=== PATIENT | male | born 1935 | race Caucasian/White ===

== ENCOUNTER 2016-11-18 22:01 | Inpatient (IN) | payer MEDICARE ==
[~2016-11-18] VITALS: Ht 175.3 cm; Wt 109.2 kg
[2016-11-18 22:05] VITALS: BP 126/61; PULSE 83; RESP 20; O2SAT 98
--- NOTE | 2016-11-18 22:09 | ED.REPORT ---
HPI-General Illness Date of Service Nov 18, 2016 ED Provider: Maurice Lyons MD Pt is a 83 year old male with a history of GA (4x) and CHF who presents to the ED via EMS complaining of weakness onset prior to arrival. He c/o associated dizziness and difficulty speaking. He denies chest pain, SOB, fever, nausea, vomiting, diarrhea, dysuria, numbness and tingling in legs, LOC, and headache. Per daughter, the pt has been complaining of fatigue for the last 2 weeks, and he has been in the process of moving in with her for the past 4 days. His daughter states that he has been more active since moving in with her. He was last known well at 09:00. The pt denies a history of CVA. Nursing Notes Stated Complaint: WEAKNESS Chief Complaint: General Complaint Nursing Notes Reviewed: Yes Allergies: Coded Allergies: No Known Allergies (Unverified , 11/18/16) General Time Seen by MD: 22:08 Chief Complaint Weakness Hx Obtained From: Patient, EMS Arrived By: Fire rescue Sudden in Onset?: Yes Onset Occurred: Just prior to arrival Symptom Duration: Intermittent Severity: Current: No pain currently Severity: Maximum: No pain Recent Healthcare: No recent doctor visit, No recent hospitalization Similar Sx Previous: No Past Medical History Past Medical History CHF GA 4x A-fib on coumadin Past Surgical History Denies Smoking History Unknown if Ever Smoker Social History Other Social History: Good social support, , Lives with children Ambulatory Status Independent Review of Systems Full Review of Systems Constitutional: Reports: Fatigue, Denies: Fever Respiratory: Denies: Shortness of breath Cardiovascular: Denies: Chest pain GI: Denies: Diarrhea, Nausea, Vomiting Neurologic: Reports: Dizziness, Slurred speech, Weakness, Denies: Change LOC, Headache, Numbness Complete sys rev & neg: except as marked. Physical Exam Vital Signs Vital Signs Date Time Temp Pulse Resp B/P Pulse Ox O2 Delivery O2 Flow Rate FiO2 11/19/16 01:45 80 17 134/73 97 Room Air 11/19/16 00:15 86 24 130/64 98 Room Air 11/18/16 23:49 85 20 126/63 97 Room Air 11/18/16 22:05 83 20 126/61 98 Room Air Initial VS: Reviewed, Vital signs normal Head / Eyes: Atraumatic, Normocephalic Neck: Supple, Full range of motion Respiratory: Breath sounds normal, Clear to auscultation, No respiratory distress Cardiovascular: Regular rate & rhythm, Heart sounds normal, Intact distal pulses Abdomen / GI: Soft, Non-tender Skin: Warm, Dry, No cyanosis Neurologic: Alert, Oriented, Nonfocal Psychiatric: Mood/affect normal, Behavior normal General/Constitutional: Awake, Alert, Cooperative Lower Extremity / Pelvis / MS: Atraumatic, Full range of motion, Neurologic intact, Vascular intact Trace bilateral edema Neurologic: Oriented X3 Minor facial palsy, left arm weakness, slurring and loss of fluency. Interpretation & Diagnostics CT ANGIOGRAM WITH MULTIPLANAR RECONSTRUCTION: CONCLUSION: No significant abnormality identified. Mild atherosclerotic changes in the carotid bulbs. CT ANGIOGRAM BRAIN: CONCLUSION: Normal CT angiogram of the brain. Moderate involutional changes. Transmitted to the ED at 01:31 by Daniel Knight M.D. Lab Results Interpretation Result Diagram: 11/18/16 2255 11/18/16 2255 Test 11/18/16 22:55 11/19/16 00:00 11/19/16 00:30 White Blood Count 6.3th/mm3 (3.8-10.1) Red Blood Count 5.10mil/mm3 (4.40-5.80) Hemoglobin 15.6g/dL (13.8-17.2) Hematocrit 44.3% (41.0-50.0) Mean Corpuscular Volume 86.9fL (81-100) Mean Corpuscular Hemoglobin 30.6pg (27.0-35.0) Mean Corpuscular Hemoglobin Concent 35.2% (32.0-37.0) Red Cell Distribution Width 14.0% (12.3-15.4) Platelet Count 202bil/L (150-400) Neutrophils (%) (Auto) 50.4% (40-74) Lymphocytes (%) (Auto) 26.5% (14-46) Monocytes (%) (Auto) 12.2% (4-12) Eosinophils (%) (Auto) 10.0% (0-5) Basophils (%) (Auto) 0.6% (0-3) Prothrombin Time 10.5sec (8.1-12.5) Prothromb Time International Ratio 0.98ratio Activated Partial Thromboplast Time 26.7sec (22.8-33.0) Sodium Level 138mEq/L (134-144) Potassium Level 4.5mEq/L (3.5-5.2) Chloride Level 102mEq/L (97-108) Carbon Dioxide Level 22mmol/L (18-29) Blood Urea Nitrogen 26mg/dL (8-27) Creatinine 1.10mg/dL (0.76-1.27) Estimat Glomerular Filtration Rate 68mL/min (>59) Glucose Level 114mg/dL (60-99) Calcium Level 9.1mg/dL (8.5-10.1) Magnesium Level 2.0mg/dL (1.6-2.6) Total Bilirubin 0.3mg/dL (0.0-1.2) Aspartate Amino Transf (AST/SGOT) 28U/L (0-50) Alanine Aminotransferase (ALT/SGPT) 20U/L (0-44) Alkaline Phosphatase 86U/L (25-160) Troponin T 0.010ug/L (0.0-0.011) Total Protein 6.7g/dL (6.4-8.4) Albumin 4.0g/dL (3.4-5.0) Hold Martin Top Tube Received (Received) Urine Color Yellow (YELLOW) Urine Appearance Clear (CLEAR,HAZY) Urine pH 7.0 (5.0-8.0) Urine Specific [place] 1.015 (1.003-1.035) Urine Protein Negativemg/dL (NEG,TRACE) Urine Glucose (UA) Negativemg/dL (NEGATIVE) Urine Ketones Negativemg/dL (NEGATIVE) Urine Occult Blood Negative (NEGATIVE) Urine Nitrite Negative (NEGATIVE) Urine Bilirubin Negative (NEGATIVE) Urine Urobilinogen 1.0mg/dL (NORMAL) Urine Leukocyte Esterase Negative (NEGATIVE) Urine RBC 0-2/hpf (0-2) Urine WBC 0-5/hpf (0-5) Urine Epithelial Cells Occasional/hpf (NONE-MOD) Urine Crystals None seen (NONE SEEN) Urine Bacteria None/hpf (NONE-FEW) Urine Hyaline Casts None/lpf (NONE) Urine Granular Casts None seen (NONE SEEN) Urine Waxy Casts None seen (NONE SEEN) Urine Red Blood Cell Casts None seen (NONE SEEN) Urine White Blood Cell Casts None seen (NONE SEEN) Urine Mucus Present (None Seen) Urine Trichomonas None seen (NONE SEEN) Urine Yeast None (NONE SEEN) Urinalysis Comment None Urine Culture Reflexed Not indicated Hold Urine Received (Received) Lab values outside NL range: no clinical significance. ECG Interpretation ECG Interpretation: Atrail fibrillation with a rate of 83. Right bundle branch block. Time: 23:13 Interpreted by: ED physician X-Ray Chest Interpretation Chest Xray Interpretation: Negative View: Portable, 1 view Interpretation / Wet Read by: Wet read ED physician CT Head Interpretation CONCLUSION: Moderate involutional changes. Moderate patchy low density bilaterally in the deep white matter likely due to chronic ischemic small vessel disease. NO acute intracranial abnormaility. Bilateral frontal ethmoid and sphenoid sinus mucosal thickening. Transmitted to the ED at 22:37 by Daniel Knight M.D. Study: Head CT no contrast Interpretation / Wet Read by: Interpret - Radiologist, Discussed w radiologist Re-Eval/Medical Decision Med Decision/Clinical Course 81-year-old male with a history of atrial fibrillation presents with waxing and waning left-sided neurological symptoms and loss of speech fluency. He has a fluctuating NIH stroke scale from 1-4 with quite subtle changes. CT scan of the head initially was negative. Labs are normal. CT angiogram of the neck and brain is negative for any obstructing lesions or evidence of clot. He will be admitted to the hospitalist service and further evaluated with MRI and/or echocardiogram. Source of Hx: Old records Time of Eval: 22:40 Re-Evaluation/Progress Note: Pt rechecked. Pt informed of CT head results. All questions addressed. Time of Eval: 00:53 Re-Evaluation/Progress Note: Pt rechecked. Informed pt of plan for admission. Pt understands and agrees with plan for admission. All questions addressed. Consultation #1: Referral / Consult Name: Daniel Knight MD Call Returned at: 22:37 Welding Setter: Agrees with eval, Agrees with plan Note: Discussed CT findings. Consultation #2: Referral / Consult Name: Hilton Mahan MD Consulted With: Hospitalist Call Returned at: 01:22 Welding Setter: Will see patient, Agrees with eval, Agrees with plan, Accepts admit Counseled Regarding: Diagnosis, Lab results, Need for admission Discharge & Departure Primary Impression: CVA (cerebral vascular accident) CVA mechanism: unspecified Qualified Code: I63.9 - Cerebral infarction, unspecified Additional Impression: A-fib Atrial fibrillation type: unspecified Qualified Code: I48.91 - Unspecified atrial fibrillation Disposition: ADMITTED TO HOSPITAL Discharge Condition All VS Reviewed: Yes Condition: Stable Referrals: [facility] Scribe Attestation Portions of this note were transcribed by Blanka Martinez. I, Dr. Lyons personally performed the history, physical exam and medical decision-making; I reviewed and confirmed the accuracy of the information in the transcribed note. Signed by: Daylin Valle, 11/18/16 and 24:30. copies to: [facility] Risk Factors NIH Stroke Scale Level of Consciousness: Alert and responsive (0) Ask Month & Age: Both questions right (0) Open/Close Eyes/Hand Floor Layer Tile: Performs both tasks (0) Horizontal EO Movements: None (0) Visual Lowe: No visual loss (0) Facial Palsy: Minor paralysis (1) Right Arm Motor Drift (10s): No drift 10 sec (0) Left Arm Motor Drift (10s): No drift 10 sec (0) Right Leg Motor Drift (5s): No drift 5 sec (0) Left Leg Motor Drift (5s): No drift 5 sec (0) Limb Ataxia FNF/Heel-Downing: Ataxia in 1 limb (1) Sensation (Arms/Legs/Face): No sensory loss (0) Language Aphasia: Loss fluency ID matls (1) Dysarthria: Slurring intelligible (1) Extinction/Inattention: No exctinct/inattent (0) NIHSS Score: 4 Time NIHSS Performed: 22:26 Date NIHSS Performed: Nov 18, 2016 Maurice Lyons MD Nov 18, 2016 22:09 Blanka Oliveira Nov 18, 2016 22:19
[2016-11-18 23:08] LABS: BASOPHILS % (AUTO) 0.6 % (0-3); MONOCYTES % (AUTO) 12.2 % (4-12); Mean Corpuscular Hemoglobin 30.6 pg (27.0-35.0); Mean Corpuscular Volume 86.9 fL (81-100); NEUTROPHILS % (AUTO) 50.4 % (40-74); Platelet Count 202 bil/L (150-400)
[2016-11-18 23:22] LABS: INR 0.98 ratio
[2016-11-18 23:26] LABS: TROPONIN T 0.01 ug/L (0.0-0.011)
[2016-11-18 23:49] VITALS: BP 126/63; PULSE 85; RESP 20; O2SAT 97
[2016-11-19] VITALS (11 sets, daily range): BP systolic 130–158; BP diastolic 64–105; PULSE 65–87; RESP 16–24; O2SAT 95–98
[2016-11-19] MEDS ORDERED: Alum-Mag Hydrox-Simeth 30 mL Suspension PO PRN (01:50)
[2016-11-19] MEDS ORDERED: Polyethylene Glycol (PEG) 17 Gm Powder PO PRN (01:50)
[2016-11-19] MEDS ORDERED: Ondansetron 2 mg/mL 2 mL Inj IVPUSH PRN (01:50)
--- NOTE | 2016-11-19 02:10 | PCM.HPMED ---
Subjective Date of Service Nov 19, 2016 Primary Provider: Admitting Physician: Debbie Hernandez MD Primary Care Physician: Other,Physician Attending Physician: Debbie Hernandez MD Admit Status: From the Emergency Department, 23-Hour Observation, Remote Telemetry Chief Complaint: Left-sided weakness and slurred speech History of Present Illness: Is an 83-year-old male who has a history of WI and atrial fibrillation who presented to the emergency room via EMS with left-sided weakness and slurred speech. He notes that it is better but not completely resolved. He denies any history of previous strokes. Patient had been on Coumadin for his atrial fibrillation but he did not want to take it anymore and stopped about 2 years ago. He denies cough or chest pain. Denies any fevers or chills. His evaluation in the emergency room includes CT of head without contrast which revealed moderate involutional changes. Moderate patchy low density bilaterally in the deep white matter likely due to chronic ischemic small vessel disease. No acute intracranial abnormality noted bilateral frontal ethmoid and sphenoid sinus mucosal thickening. Per ER M.D. preliminary read on CTA head and neck is essentially negative no acute findings. Review of Systems: All other review of systems are reviewed and are negative except for as in history of present illness. Allergies Coded Allergies: No Known Allergies (Unverified , 11/18/16) Home Medications None PMH History of atrial fibrillation, chronic History of congestive heart failure no records available at the time this dictation History of WI 4 times Social History Hx Alcohol Use: No (quit in 1968) Hx Substance Use: No Smoking Status: Former Smoker (quit in 1968), Unknown if Ever Smoker Living Arrangement: with Family Exam Vital Signs Vital Sign - Last Date Time Temp Pulse Resp B/P Pulse Ox O2 Delivery O2 Flow Rate FiO2 11/19/16 01:54 80 17 134/73 97 Room Air Exam Constitutional: Elderly male in no acute distress Head: Normocephalic atraumatic Chest: Clear to auscultation Heart: Irregular regular rate and rhythm S1-S2 Abdomen: Soft nontender bowel sounds present Extremities: Trace bilateral pedal edema Psych: Mood and affect are appropriate Skin: No rashes noted Neuro: Alert and oriented 3 there is some slight dysarthria with speaking motor strength seems to be intact bilaterally Lab and Diagnostics Labs Laboratory Tests 72 Hours Test 11/18/16 22:55 11/19/16 00:30 White Blood Count 6.3th/mm3 (3.8-10.1) Red Blood Count 5.10mil/mm3 (4.40-5.80) Hemoglobin 15.6g/dL (13.8-17.2) Hematocrit 44.3% (41.0-50.0) Mean Corpuscular Volume 86.9fL (81-100) Mean Corpuscular Hemoglobin 30.6pg (27.0-35.0) Mean Corpuscular Hemoglobin Concent 35.2% (32.0-37.0) Red Cell Distribution Width 14.0% (12.3-15.4) Platelet Count 202bil/L (150-400) Neutrophils (%) (Auto) 50.4% (40-74) Lymphocytes (%) (Auto) 26.5% (14-46) Monocytes (%) (Auto) 12.2% (4-12) Eosinophils (%) (Auto) 10.0% (0-5) Basophils (%) (Auto) 0.6% (0-3) Prothrombin Time 10.5sec (8.1-12.5) Prothromb Time International Ratio 0.98ratio Activated Partial Thromboplast Time 26.7sec (22.8-33.0) Sodium Level 138mEq/L (134-144) Potassium Level 4.5mEq/L (3.5-5.2) Chloride Level 102mEq/L (97-108) Carbon Dioxide Level 22mmol/L (18-29) Blood Urea Nitrogen 26mg/dL (8-27) Creatinine 1.10mg/dL (0.76-1.27) Estimat Glomerular Filtration Rate 68mL/min (>59) Glucose Level 114mg/dL (60-99) Calcium Level 9.1mg/dL (8.5-10.1) Magnesium Level 2.0mg/dL (1.6-2.6) Total Bilirubin 0.3mg/dL (0.0-1.2) Aspartate Amino Transf (AST/SGOT) 28U/L (0-50) Alanine Aminotransferase (ALT/SGPT) 20U/L (0-44) Alkaline Phosphatase 86U/L (25-160) Troponin T 0.010ug/L (0.0-0.011) Total Protein 6.7g/dL (6.4-8.4) Albumin 4.0g/dL (3.4-5.0) Hold Martin Top Tube Received (Received) Hold Urine Received (Received) Result Diagram: 11/18/16225411/18/162254 Assessment & Plan # Possible CVA, acute, present on admission -We will check MRI of brain to further elucidate whether CVA is present -Check on results of CTA of head and neck -Anticoagulation until determine whether CVAs present on MRI -Initiate ASA, statins -Check fasting lipid panel -Check urine for UA -Swallowing eval, PT, OT # Atrial fibrillation, chronic, present on admission - Recommend long-term anticoagulation at this point until we determine whether acute CVA is present will hold on that for now # DVT prophylaxis Placed on prophylactic subcutaneous Lovenox # CODE STATUS Full code VTE Prophylaxis: Sub-Q Enoxaparin Resuscitation Status: CPR: Attempt Resuscitation Time spent 60 minutes Debbie Hrenandez MD Nov 19, 2016 02:10
[2016-11-19 02:15] LABS: APPEARANCE,URINE CLEAR (CLEAR,HAZY); COLOR,URINE YELLOW (YELLOW); OCCULT BLOOD,URINE NEGATIVE (NEGATIVE)
--- NOTE | 2016-11-19 03:17 | NUR ---
Arrival to [facility] pt arrives to room 1007 at 0210 via gurney. No pain. Oriented to room, call light, and given CVA education booklet. VSS. Pt is very unsteady on feet, not to stand unassisted. Voiding in urinal. Admission completed except for med Rec. Pt states his PCP is Dr Syd Child in [place], pt has also stated he has stopped taken RX meds and is on herbal supplements instead. On tele, currently Afib 100s with PVCs. Saline lock x2 in left arm. Care continues
--- NOTE | 2016-11-19 10:25 | NUR ---
Evaluation completed. Please go to "Notes" then click on "Assessments and Notes" (bottom left corner of screen). Then select appropriate discipline tab on top of screen.
--- NOTE | 2016-11-19 10:50 | NUR ---
case Management- NESBITT explained and signed by patient at 1021. Copy given to patient. Original placed in chart. Daly Dominguez RN/ UR
--- NOTE | 2016-11-19 11:18 | DRSVH ---
PROCEDURE: X-RAY CHEST ONE VIEW, PORTABLE ([id number]) INDICATIONS: weakness TECHNIQUE: One view of the chest was acquired. COMPARISON: None. FINDINGS: Surgical changes and devices: None. Lungs and pleura: No pleural effusions or pneumothorax. Lungs are clear. Mediastinum: Mediastinal contours appear normal. Heart size is normal. Bones and chest wall: No suspicious bony lesions. Overlying soft tissues appear unremarkable. IMPRESSION: No acute cardiopulmonary disease. Dictated by: Alfred TALLEY Interpreted: Chela Goddard MD on 11/19/2016 at 8:54 Transcribed by: SANTINO on 11/19/2016 at 9:02 Approved by: Chela Goddard M.D. on 11/19/2016 at 10:07
--- NOTE | 2016-11-19 11:18 | DRSVH ---
PROCEDURE: CT BRAIN (TPA) ([id number]) INDICATIONS: Stroke TECHNIQUE: Noncontrast 4.5 mm thick angled axial sections acquired from the foramen magnum to the vertex, with c oronal reformats. COMPARISON: None. FINDINGS: Image quality: Excellent. CSF spaces: Basal cisterns are patent. No extra-axial fluid collections. The ventricles are symmet mervat in size and shape. Brain: No intracranial bleeds or masses. There is moderate cerebral volume loss for age, with resul tant ventricular and sulcal prominence. There are moderate periventricular and deep white matter chr onic small vessel ischemic changes. There is intracranial internal carotid artery atherosclerosis. Skull and face: Calvarium and visualized facial bones appear intact, without suspicious lesions. Sinuses: There is mucosal thickening in ethmoid sinuses bilaterally. The mastoids are clear. IMPRESSION: 1. No acute intracranial abnormalities. 2. Cerebral volume loss and chronic microvascular ischemic changes. 3. Bilateral ethmoid sinus disease. No significant discrepancy with the loom mechanic radiology preliminary report. This study fulfills neurological imaging criteria for inclusion or exclusion of acute stroke therapie s based on available published neurological guidelines. Dictated by: Fransisco Mancilla M.D. on 11/19/2016 at 7:50 Approved by: Fransisco Mancilla M.D. on 11/19/2016 at 7:52
--- NOTE | 2016-11-19 11:18 | DRSVH ---
PROCEDURE: CT ANGIO BRAIN NECK TPA INDICATIONS: STAT READ - CALL ED PROVIDER W/RESULTS TECHNIQUE: Pre-contrast 4.5 mm thick sections acquired from the foramen magnum to the vertex. After the adminis tration of intravenous contrast, 1 mm thick sections acquired from the aortic arch through the [place] of [place]. Post-contrast 4.5 mm thick sections then re-acquired from the foramen magnum to the vert ex. 3-dimensional sbaxbrw-yenlrrkxa-jyqppcowxm (MIP) and/or volume rendering reformats were acquired of the central intracranial vasculature and neck separately. For radiation dose reduction, the foll owing was used: automated exposure control, adjustment of mA and/or kV according to patient size. COMPARISON: [facility], CT, BRAIN (TPA), 11/18/2016, 22:33. FINDINGS: Image quality: Excellent. BRAIN: CSF spaces: Ventricles are normal in size and shape. Basal cisterns are patent. No extra-axial flu id collections. Brain: Mild to moderate cerebral volume loss and periventricular white matter chronic small vessel i schemic changes are present. There is an old lacunar infarct in the left basal ganglia. No midline sh ift. No intracranial bleeds or masses. Prince-white matter interface appears intact. Skull and face: Calvarium and facial bones appear intact, without suspicious lesions. Orbits appear normal. Sinuses: An air fluid level is present in the right maxillary sinus. There is a mucous retention cyst or polyp in the right maxillary sinus. There is bilateral ethmoid and sphenoid sinus mucosal thicken ing. Mastoids are clear. HEAD CT ANGIOGRAPHY: Anterior circulation: Intracranial internal carotid arteries are normal in size and flow. The flow within the paired anterior cerebral arteries is normal and symmetric. The flow within the middle cer ebral arteries is normal and symmetric. The anterior communicating artery is seen. No aneurysms are seen. Posterior circulation: Visualized portions of the vertebral arteries demonstrate normal caliber, and join to form a normal appearing basilar artery. Flow within the posterior cerebral arteries is norm al and symmetric. No aneurysms are seen. NECK CT ANGIOGRAPHY: Carotid system: The great vessels demonstrate a conventional anatomy as they arise from the aortic a rch. Mild calcified plaques in aortic arch and carotid bifurcations. The origins of the common carot id arteries appear patent. The common carotid arteries demonstrate normal caliber and courses. The bifurcation regions are both widely patent. The internal carotid arteries demonstrate normal caliber s and courses. Posterior circulation: The origins of the vertebral arteries both appear widely patent. The more valdez perior extracranial portions of both vertebral arteries also demonstrate normal courses and calibers. They join to form a normal appearing basilar artery. Soft tissues: Visualized neck soft tissues demonstrate no suspicious abnormalities. Mild to moderat e emphysema. Bones: No suspicious bony lesions. There is moderate to severe degenerative disc disease at C6-C7. Visualized cervical spine appears normally aligned. IMPRESSION: 1. No high-grade stenosis or occlusion of carotid arteries or vertebral arteries. 2. No acute intracranial abnormalities. Old lacunar infarct in the left basal ganglia and chronic niels rovascular ischemic changes. 3. Bilateral paranasal sinus disease as described. No significant discrepancy with the advisory intern radiology preliminary report. Dictated by: Fransisco Mancilla M.D. on 11/19/2016 at 8:18 Approved by: Fransisco Mancilla M.D. on 11/19/2016 at 8:33
[2016-11-19] MEDS ORDERED: METO-272 PO (12:03)
[2016-11-19] MEDS ORDERED: MECL-114 PO (12:03)
[2016-11-19] MEDS ORDERED: FURO40TA4 PO (12:03)
[2016-11-19] MEDS ORDERED: MULT-666 PO (12:15)
[2016-11-19] MEDS ORDERED: TRIA10.8 NS (12:15)
[2016-11-19] MEDS ORDERED: NATTOKINASE PO (12:15)
[2016-11-19] MEDS ORDERED: IPRA30SP8 NS (12:15)
[2016-11-19] MEDS ORDERED: ASPI-973 PO (12:15)
[2016-11-19] MEDS ORDERED: calcium (12:17)
--- NOTE | 2016-11-19 12:22 | NUR ---
Evaluation completed. Please go to "Notes" then click on "Assessments and Notes" (bottom left corner of screen). Then select appropriate discipline tab on top of screen.
--- NOTE | 2016-11-19 13:11 | NUR ---
NUTRITION ASSESSMENT: ASSESS: Pt is an 81yo m admitted for CVA. Pt has left facial weakness and slurred speech. ST has evaluated pt and is currently recommending NPO at this time. PMHX: Afib, CHF, [place] LABS: Reviewed. Glu 114, Alb 4.0, A1C pending MEDS: Reviewed. GI: 0 BM SKIN: no major issues CURRENT WTS: 106.1kg, BMI 34.5kg/m2, IBW: 72.7kg DIET: NPO per ST EST. NEEDS: BMI Kcals: 2120-2335kcal/day (20-22kcal/kg) Pro: 85-110g/day (1.2-1.5g/kg IBW) NUTRITION DIAGNOSIS: 1.) Chew/swallow difficulty related to CVA as evidence by need for NPO status per ST and left facial weakness and slurred speech 2.) Inadequate oral intake related to decreased ability to consume sufficient energy as evidenced by current NPO status NUTRITION INTERVENTION: 1.) Recommend advance diet per ST 2.) Will monitor NPO status MONITOR / EVAL: NPO, ST, wt, gi, labs, POC, nutrition status. Will continue to monitor per high nutrition risk guidelines.
--- NOTE | 2016-11-19 13:18 | DRSVH ---
PROCEDURE: MRI BRAIN WITH AND WITHOUT CONTRAST ([id number]) INDICATIONS: 81 year-old male with CVA. TECHNIQUE: Noncontrast axial T1 spin echo, axial T2 fast spin echo, sagittal and axial FLAIR, coronal T2 fast sp in echo, axial gradient echo, axial diffusion and ADC through the brain. After the administration of contrast, axial and coronal T1 spin echo with fat saturation through the brain. COMPARISON: [facility], CT, BRAIN (TPA), 11/18/2016, 22:33. FINDINGS: Image quality: Excellent. CSF spaces: Basal cisterns are patent. No extra-axial fluid collections. Ventricles are normal in size and shape. Brain: Diffusion-weighted images demonstrate restricted diffusion in the right anterior darling, consis tent with acute ischemic insults. No midline shift. No intracranial bleeds or masses. No abnormal intracranial enhancement. There is moderate cerebral volume loss for age. There is moderate periven tricular white matter chronic small vessel ischemic change. The brainstem appears normal. No chroni c ischemic insults. Normal intravascular flow voids are present. Skull and face: Calvarial marrow is normal in signal. Orbits appear normal. Sinuses: There is mucosal thickening involving frontal, ethmoid, sphenoid, and maxillary sinuses bila terally. The mastoids appear clear. IMPRESSION: 1. Acute ischemia insults involving the right anterior darling. 2. Cerebral volume loss and chronic microvascular ischemic changes. 3. Bilateral pansinusitis. Dictated by: Fransisco Mancilla M.D. on 11/19/2016 at 13:10 Approved by: Fransisco Mancilla M.D. on 11/19/2016 at 13:16
--- NOTE | 2016-11-19 15:58 | NUR ---
Social Work- Initial Assessment Data: See Initial Assessment. Pt is a 81 year old male admitted 11/19/16 for CVA. Pt's insurance is [employer] by [facility] [employer]. Pt's PCP is Buzz Child at [facility]. Pt's NOK is daughter Lou Saenz, . SW was approached by pt's daughter regarding discharge plan and concerns she had related to discharge. Pt's daughter requested STEWARD/STEWARDESS ROOM speak with her outside of the room. Pt is under observation status at this time. UR RN reviewing pt for inpt status pending MRI results. SW role explained with pt's daughter. Pt and his Erin are in the process of moving in with his daughter on [address]. Pt has no DME at home but pt's daughter feels that he would benefit from a walker or cane. She has provided pt and his with a walk in shower with a bench, no steps in the home, their own private bedroom, and ADA toilets. Pt has rest stations throughout his daughters property and uses the [employer] mower to get around longer distances. Pt's daughter has installed grab bars at the entrances to the home. Pt has no HH history. Pt has rehab history at [facility]. Pt has no LTC insurance. Pt has VA benefits but pt's daughter does not believe he is service connected. SW spoke extensively with pt's daughter about options if pt remains observation or if he is switched to inpt status and meets his three midnight criteria. If pt remains observation, pt will likely require in home caregivers and HH services. If pt meets inpt status and midnight criteria then inpt rehab can be discussed. SW reiterated that MD orders will be necessary for both facility placement and HH services and STEWARD/STEWARDESS ROOM will not work without a MD order. Pts daughter aware of these factors. Pts daughter provided with Senior Resource Guide to assist with caregivers. Pts daughter was provided with [facility] Discharge Planning Checklist. Pts daughter has STEWARD/STEWARDESS ROOM phone number and was also oriented to phone number on whiteboard in pts room. SW encouraged pts daughter to call STEWARD/STEWARDESS ROOM with further questions or concerns. Daughter agreeable. PT and OT are both recommending Inpatient Rehab at this time. PT has evaluated pt, pt was able to ambulate 50 feet with fww with 2 LOB. OT recommending inpt rehab based on pt being SBA to mod assist with assistance with ADLs. Pts daughter feels that she cannot care for pt at home at this level of care. During the writing of this note, STEWARD/STEWARDESS ROOM notified that pt is being switched to inpt status. If pt meets 3 midnight criteria pt will be eligible for facility placement. SW will follow up with pt and family tomorrow regarding discharge planning needs. SW to await MD orders regarding discharge planning needs before pursuing plan. SW will continue to follow. Assessment: Pt for whom higher level of care is recommended. Plan: Per chart review, pt has been switched to inpt status. . If pt meets 3 midnight criteria pt will be eligible for facility placement. SW will follow up with pt and family tomorrow regarding discharge planning needs. SW to await MD orders regarding discharge planning needs before pursuing plan. SW will continue to follow. HERNANDO Stephens Addendum: 11/19/16 at 1559 by OLMAN KELLEY Amended: Links added.
[2016-11-19] MEDS: Dextrose 5% 0.45% NaCl 1,000 ML IV SCH (16:29)
--- NOTE | 2016-11-19 17:15 | NUR ---
Case Management: IMM explained to patient at 1650, all questions answered. Pt refused to sign stating he needed to read through it first. He requested that I return in the am while his daughter is present. I left a copy of the IMM with patient to read. RN to return tomorrow am for signature. Rachel Muhammad RN
--- NOTE | 2016-11-19 19:16 | NUR ---
Neuro- Patient is alert and oriented. Speech is slurred and a left facial droop noted. Tongue midline.Left hand grasp weaker than right, and it was noted when patient ambulating with PT that left leg is weaker. Denies headache or visual changes. Tolerating prescribed diet after swallow eval. without problems swallowing.
[2016-11-20] VITALS (9 sets, daily range): BP systolic 116–157; BP diastolic 75–89; PULSE 60–92; RESP 18; O2SAT 95–97
[2016-11-20] MEDS: Dextrose 5% 0.45% NaCl 1,000 ML IV SCH ×3 (04:12→19:45)
--- NOTE | 2016-11-20 05:45 | NUR ---
Neuros Pt A&O, able to make needs known, mild L sided weakness noted and L facial droop. Pt aware of deficits and understands activity and dietary limitations. Pt denies any pain, pleasant and cooperative.
[2016-11-20] MEDS ORDERED: APIX5TAB PO ×2 (09:26→14:54)
[2016-11-20] MEDS ORDERED: ASPI-973 PO (09:26)
--- NOTE | 2016-11-20 09:42 | PCM.DIMED ---
Ryley Carrizales MD 11/20/16 0929: Discharge Instructions Date of Service Nov 20, 2016 Dates of Hospitalization Nov 19, 2016 at 01:50 Discharge Diagnosis Discharge Diagnosis Acute ischemic stroke of brainstem Chronic atrial fibrillation Medication Instructions Additional med instructions Please continue to take [id number] and Eliquis 5mg twice a day Diet Discharge Diet: Heart Healthy Activity Discharge Activity: Home Health Phyical Therapy Call your provider Call your provider for: Weakness (unilateral) Patient Instructions Patient Instructions You were hospitalized with left sided weakness and slurred speech, you were found to have acute stroke in your brainstem. In order to maximize your strength , you are discharged to inpatient rehab. Please monitor your stools given newly started blood thinner, if you notice bloody or black stools, please stop taking Eliquis, seek for medical help Please follow up with your doctor in 2weeks Instruction for PCP, future provider> Please consider PCSK9 inhibitor for HLD, LDL level was 132 on this admission, pt was not given statin as pt claimed that he developed intolerance in the past Please consider start regimen for CHF, no BB or ACEI was started on this admission as no other information available regarding his cardiac disease. pt is known to be noncompliant. echocardiogram was not obtained, please consider to repeat if necessary. Regardless of the result, pt was restarted on Eliquis, Rx for 1month and 2weeks given to the patient Follow-up Provider[facility] Follow-up with PCP in: 2 weeks Jesu Naylor MD 11/21/16 1322: Discharge Instructions Patient Instructions Additional Information Pleas note that patient is being discharged home with outpatient speech therapy. Ryley Carrizales MD Nov 20, 2016 09:29 Jesu Naylor MD Nov 21, 2016 13:22 Jesu Naylor MD Nov 21, 2016 13:22
--- NOTE | 2016-11-20 11:07 | NUR ---
Faxed referral to [facility] per MEDIA ACCOUNT EXECUTIVE and MD order, patient is ready for discharge today. Addendum: 11/20/16 at 1439 by ALDO HERNANDEZ [facility] is reviewing and contacting insurance for authorization, will update when there is one. They know patient is ready for discharge today. Updated MEDIA ACCOUNT EXECUTIVE
--- NOTE | 2016-11-20 11:48 | NUR ---
Social Work- Multi-Disciplinary Rounds/Readiness for Discharge Data: EMR reviewed. Pt is a 81 year old male admitted 11/19/16 for CVA. Pt is inpatient status as of 11/19. Pt's insurance was changed to [facility] Complete HMO. Per multi-disciplinary rounds, feels that pt would be appropriate candidate for inpatient rehabilitation. PT, OT, ST have all recommended inpt rehabilitation at last evaluation. also requested that GUN REPAIR CLERK run a script for pt's Eliquis 5 mg BID for 30 days. Per MD, pt is likely to be ready for discharge tomorrow. SW confirmed that inpt rehabilitation does not require 3 midnight criteria per MCR and pt would be eligible for referral today. SW acknowledges order for inpt rehabilitation. SW met with pt at bedside regarding this order. Pt is very agreeable and is very motivated to progress to return home. SW provided education regarding inpatient rehabilitation and the level of intensity required. Pt obviously knows a lot about inpatient rehabilitation as he was able to speak to GUN REPAIR CLERK at length about the potential 3-6 hours of rehabilitation that may be required. GUN REPAIR CLERK discussed that the inpt rehab options are in [place] or [place]. Pt preferred [facility] referral. Pt's daughter is pt's primary support and she is very motivated and involved in his care. Pt's daughter and GUN REPAIR CLERK spoke at length yesterday regarding discharge planning and GUN REPAIR CLERK placed call to Lou again today to answer any further questions or concerns she had. GUN REPAIR CLERK left message for Lou at [phone] requesting return call. GUN REPAIR CLERK ran Eliquis script through pt's preferred pharmacy listed in EMR. Per pharmacist, pt has filled this in the past. For the script written of 5 mg tablets BID for 30 days, pt's cost would be $245. paged to provide this information. Referral made to [facility]. Insurance Authorization will be required prior to pt's discharge to inpt rehabilitation. SW will continue to follow. Assessment: Pt for whom higher level of care is recommended. Plan: Referral made to [facility]. Insurance Authorization will be required prior to pt's discharge to inpt rehabilitation. SW to speak with pt's daughter today. Pt updated and agreeable to plan. SW will continue to follow. HERNANDO Stephens Addendum: 11/20/16 at 1524 by OLMAN KELLEY GUN REPAIR CLERK spoke with pt's and daughter. GUN REPAIR CLERK explained that pt may progress to not qualifying for inpt rehabilitation. The next step would be Home Health. Family confirmed that pt would be discharging to [facility]. GUN REPAIR CLERK also informed them of prescription cost of $245. They stated that cost was the reason that the pt stopped taking Eliquis but also acknowledged that Eliquis is the only drug that works because (per family) pt has side effects or allergies from other medications. Family requested that MD write letter to reduce drug's Tier and reduce the cost. JACOB RN notified MD of this request and GUN REPAIR CLERK confirmed that MD is aware. MD states that pt's PCP can write the letter. MD continues to recommend inpt rehab at this time. [facility] reports that [facility] is still reviewing pt and working with pt's insurance. Pt also has VA benefits and [facility] contacted Patient Access. Cassandra confirmed that pt is 10% service connected and does not see [facility] PCP. Pt and family updated of all and agreeable to plan. Karlie Kelley, GUN REPAIR CLERK
[2016-11-20] MEDS ORDERED: Pharmacy Discharge Counseling XX SCH (12:15)
--- NOTE | 2016-11-20 12:15 | PCM.PHADCC ---
Subjective Left-sided weakness and slurred speech Clinical Pharmacist Consult: Discharge Counseling (ON 11/20 FOR APIXIBAN) Objective Vital Signs Date Time Temp Pulse Resp B/P Pulse Ox O2 Delivery O2 Flow Rate FiO2 11/20/16 09:21 36.4 90 18 135/81 96 Room Air 11/20/16 08:00 86 11/20/16 05:44 84 11/20/16 05:21 36.8 76 18 138/83 95 Room Air 11/20/16 05:08 92 11/20/16 00:33 36.6 72 18 157/82 95 Room Air 11/19/16 20:19 36.5 77 18 146/91 97 Room Air 11/19/16 17:11 37.0 87 18 149/105 97 Room Air 11/19/16 14:26 Room Air 11/19/16 12:56 36.5 83 16 157/98 96 Room Air Intake and Output 11/18/16 11/19/16 11/20/16 00:00 00:00 00:00 Intake Total 0 ml Output Total 1050 ml Balance -1050 ml Weight (Kilograms): 107.000 Height (Feet): 5 Height (Inches): 9.00 Test 11/18/16 22:55 11/19/16 00:00 11/19/16 00:30 11/19/16 05:25 White Blood Count 6.3th/mm3 (3.8-10.1) Red Blood Count 5.10mil/mm3 (4.40-5.80) Hemoglobin 15.6g/dL (13.8-17.2) Hematocrit 44.3% (41.0-50.0) Mean Corpuscular Volume 86.9fL (81-100) Mean Corpuscular Hemoglobin 30.6pg (27.0-35.0) Mean Corpuscular Hemoglobin Concent 35.2% (32.0-37.0) Red Cell Distribution Width 14.0% (12.3-15.4) Platelet Count 202bil/L (150-400) Neutrophils (%) (Auto) 50.4% (40-74) Lymphocytes (%) (Auto) 26.5% (14-46) Monocytes (%) (Auto) 12.2% (4-12) Eosinophils (%) (Auto) 10.0% (0-5) Basophils (%) (Auto) 0.6% (0-3) Prothrombin Time 10.5sec (8.1-12.5) Prothromb Time International Ratio 0.98ratio Activated Partial Thromboplast Time 26.7sec (22.8-33.0) Sodium Level 138mEq/L (134-144) Potassium Level 4.5mEq/L (3.5-5.2) Chloride Level 102mEq/L (97-108) Carbon Dioxide Level 22mmol/L (18-29) Blood Urea Nitrogen 26mg/dL (8-27) Creatinine 1.10mg/dL (0.76-1.27) Estimat Glomerular Filtration Rate 68mL/min (>59) Glucose Level 114mg/dL (60-99) Calcium Level 9.1mg/dL (8.5-10.1) Magnesium Level 2.0mg/dL (1.6-2.6) Total Bilirubin 0.3mg/dL (0.0-1.2) Aspartate Amino Transf (AST/SGOT) 28U/L (0-50) Alanine Aminotransferase (ALT/SGPT) 20U/L (0-44) Alkaline Phosphatase 86U/L (25-160) Troponin T 0.010ug/L (0.0-0.011) Total Protein 6.7g/dL (6.4-8.4) Albumin 4.0g/dL (3.4-5.0) Hold Martin Top Tube Received (Received) Hemoglobin A1c 5.8% (4.8-5.6) Urine Color Yellow (YELLOW) Urine Appearance Clear (CLEAR,HAZY) Urine pH 7.0 (5.0-8.0) Urine Specific [place] 1.015 (1.003-1.035) Urine Protein Negativemg/dL (NEG,TRACE) Urine Glucose (UA) Negativemg/dL (NEGATIVE) Urine Ketones Negativemg/dL (NEGATIVE) Urine Occult Blood Negative (NEGATIVE) Urine Nitrite Negative (NEGATIVE) Urine Bilirubin Negative (NEGATIVE) Urine Urobilinogen 1.0mg/dL (NORMAL) Urine Leukocyte Esterase Negative (NEGATIVE) Urine RBC 0-2/hpf (0-2) Urine WBC 0-5/hpf (0-5) Urine Epithelial Cells Occasional/hpf (NONE-MOD) Urine Crystals None seen (NONE SEEN) Urine Bacteria None/hpf (NONE-FEW) Urine Hyaline Casts None/lpf (NONE) Urine Granular Casts None seen (NONE SEEN) Urine Waxy Casts None seen (NONE SEEN) Urine Red Blood Cell Casts None seen (NONE SEEN) Urine White Blood Cell Casts None seen (NONE SEEN) Urine Mucus Present (None Seen) Urine Trichomonas None seen (NONE SEEN) Urine Yeast None (NONE SEEN) Urinalysis Comment None Urine Culture Reflexed Not indicated Hold Urine Received (Received) Triglycerides Level 164mg/dL (0-149) Cholesterol Level 197mg/dL (100-199) LDL Cholesterol, Calculated 132.200mg/dL (0-99) VLDL Cholesterol 32.800mg/dL HDL Cholesterol 32mg/dL (>39) Cholesterol/HDL Ratio 6.16 (0.0-4.4) Beryl Burns [facility] Nov 20, 2016 12:15
--- NOTE | 2016-11-20 14:02 | NUR ---
Spoke with Cassandra in patient access at [facility] and this patient is 10% service connected and is not connected with primary care through the [facility]. Patient also holds MCR A & B
--- NOTE | 2016-11-20 14:07 | NUR ---
Case management- IMM explained and signed by patient and . Copy given to patient and original placed in chart. Daly JAMES/JOHNNY
--- NOTE | 2016-11-20 17:24 | DRSVH ---
[facility] [address] [place] [address] Echocardiogram Report Name: DAY HOLGUIN JStudy Date : 11/20/2016 Height: 69 in Hospital Exam Location: [facility] Weight: 235 lb Gender: Male BSA: 2.2 m2 : 1935 Age: 81 yrs BP: 138/83 mmHg Reason For Study: CVA Ordering Physician: HOSPITALIST [facility] Performed By: Ramy Kline Referring Physician: JOSÉ MIGUEL CAMACHO Interpretation Summary The left ventricle is mildly dilated. Left ventricular systolic function is borderline reduced. The ejection fraction is estimated to be 50-55%. With reduced visualization of the subendocardial border, there appears to be hypokinesis along the basal inferoseptal and inferior wall. The right ventricle is mildly dilated. Right ventricular systolic function is borderline reduced. Right ventricular systolic pressure is estimated to be 24 mmHg plus the clinically estimated CVP which cannot be estimated on this exam. The left atrium is severely dilated. Right atrial size is normal. There is mild to moderate tricuspid regurgitation. There is no other significant valvular heart disease. The ascending aorta is mildly enlarged. Procedure: A two-dimensional transthoracic echocardiogram with color flow and Doppler was performed. The study quality was technically difficult. There is no prior echocardiogram noted for this patient. A contrast injection of Definity was performed to improve assessment for apical thrombus. The patient was in atrial fibrillation with heart rates between 55-84 bpm during the exam. Left Ventricle: The left ventricle is mildly dilated. There is normal left ventricular wall thickness. Left ventricular systolic function is borderline reduced. The ejection fraction is estimated to be 50-55%. With reduced visualization of the subendocardial border, there appears to be hypokinesis along the basal inferoseptal and inferior wall. Diastolic function could not be accurately assessed due to atrial fibrillation. Right Ventricle: The right ventricle is mildly dilated. Right ventricular systolic function is borderline reduced. Atria: The left atrium is severely dilated. Right atrial size is normal. The interatrial septum is intact with no evidence for an atrial septal defect. There is no Doppler evidence for an interatrial shunt. Mitral Valve: The mitral valve leaflets appear thickened, but open well. There is trace mitral regurgitation. Aortic Valve: The aortic valve is trileaflet. The aortic valve is moderately calcified. The aortic valve opens well. There is trace aortic regurgitation. Tricuspid Valve: The tricuspid valve is normal in structure and function. There is mild to moderate tricuspid regurgitation. Right ventricular systolic pressure is estimated to be 24 mmHg plus the clinically estimated CVP which cannot be estimated on this exam. Pulmonic Valve: The pulmonic valve is not well seen, but is grossly normal. There is trace pulmonic regurgitation. There is no other significant valvular heart disease. Great Vessels: The aortic root is normal size. The ascending aorta is mildly enlarged. The pulmonary artery is not well visualized, but is probably normal size. The IVC was not well visualized secondary to technical limitations making central venous pressures difficult to estimate. Pericardium/ Pleura There is no pericardial effusion. There is no pleural effusion. MMode/2D Measurements & Calculations LVIDd: 6.0 cm RA long axis LVOT diam LVIDs: 5.0 cm LA A2 area: 28.9 cm FS: 17.1 % LA A4 area: 33.6 cm RA area Ao root diam EPSS: 0.99 cm LA length (vol): 6.6 cm IVSd: 1.1 cm LA vol: 124.4 ml : 19.9 cm asc Aorta LVPWd: 0.98 cm LA vol index RA vol: 53.3 mlDiam: 3.5 cm RA : 56.2 ml/m2 : 24.1 mm2 LV gore. diameter/BSA LV sys. diameter/BSA TAPSE: 2.0 cm (cm/m^2): 2.7 (cm/m^2): 2.2 Doppler Measurements & Calculations Ao V2 max: 103.0 cm/secMV E max mariano Lat Peak E' Mariano TR max mariano Ao max P.3 mmHg : 85.7 cm/sec : 244.5 cm/sec Ao mean P.6 mmHg MV P1/2t E/E' lat: 9.4 TR max PG LVOT Max Mariano : 49.8 msec : 24.1 mmHg : 52.4 cm/sec PA V2 max URBANO(I,D): 2.6 cm : 44.7 cm/sec sev ratio: 0.56 PA mean PG : 0.46 mmHg MV P1/2t max mariano Ao V2 mean LV V1 max PG PA V2 mean : 76.3 cm/sec : 32.1 cm/sec MVA(P1/2t): 4.4 cm2 Ao V2 VTI LV V1 VTI: 9.5 cm PA pr(Accel) : 39.2 mmHg URBANO(V,D): 2.3 cm2 URBANO indexed to BSA (cm^2/m^2): 1.2 Reading Physician:NOEMÍ
--- NOTE | 2016-11-20 18:02 | PCM.PNMED ---
Subjective Date of Service Nov 20, 2016 Subjective pt was more alert and speech was better, communicative. tolerated Eliquis well. Exam Vital Signs Vital Sign - Last Date Time Temp Pulse Resp B/P Pulse Ox O2 Delivery O2 Flow Rate FiO2 11/20/16 17:06 36.4 60 18 129/87 96 Room Air Intake and Output 11/19/16 11/19/16 11/20/16 Cumulative From/Thru 14:59 22:59 06:59 11/18/16 22:05 - 11/20/16 05:20 Intake Total 0 ml 1534 ml 1534 ml Output Total 850 ml 750 ml 1800 ml Balance -850 ml 784 ml -266 ml Intake Oral 0 ml 450 ml 450 ml IV Total 1084 ml 1084 ml Output Urine Total 850 ml 750 ml 1800 ml # Bowel Movements 0 0 0 Exam NAD, comfortably laying down on the bed no JVD, MMM, no LAD RRR, nl s1, s2 no mrg CTAB, no w,c S,ND,NT,normoactive BS+ warm, no edema, pulses 2/2 neuro: AAOX3, motor 5/5 throughout, mild slurred speech, CN2-12grossly normal IVs and Medications Medications Reviewed: Medications were reviewed in detail Lab and Diagnostics Result Diagram: 11/18/[id number]/[id number] Cardiac Echo Impressions Echocardiogram Report Name: DAY HOLGUIN JStudy Date : 11/20/2016 Height: 69 in Hospital Exam Location: [facility] Weight: 235 lb Gender: Male BSA: 2.2 m2 : 1935 Age: 81 yrs BP: 138/83 mmHg Reason For Study: CVA Ordering Physician: HOSPITALIST [facility] Performed By: Ramy Kline Referring Physician: JOSÉ MIGUEL CAMACHO Interpretation Summary The left ventricle is mildly dilated. Left ventricular systolic function is borderline reduced. The ejection fraction is estimated to be 50-55%. With reduced visualization of the subendocardial border, there appears to be hypokinesis along the basal inferoseptal and inferior wall. The right ventricle is mildly dilated. Right ventricular systolic function is borderline reduced. Right ventricular systolic pressure is estimated to be 24 mmHg plus the clinically estimated CVP which cannot be estimated on this exam. The left atrium is severely dilated. Right atrial size is normal. There is mild to moderate tricuspid regurgitation. There is no other significant valvular heart disease. The ascending aorta is mildly enlarged. 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 TTE showed no shunt, thrombus. -started aspirin 325mg, decreased to 162mg daily -statin was not initiated as pt couldn't tolerate in the past, of note [id number], encouraged further discussion with PCP about PCSK9 inhibitor -daily PT/OT/ s/s eval, chronic afib, POA, used to be on coumadin, Eliquis, Xarelto, off for several months due to noncompliance -resumed Eliquis 11/19, upon literature review, given small size of stroke, risks of hemorrhagic conversion seemed low, will continue 5mg bid, Rx was printed( needs preauth or letter by PCP to decreased the cost) chronic, stable hx of CHF, EF normal on TTE, follow up with pcp, euvolemic on exam, addressed with daughter. chronic non-compliance, addressed extensively with patient, family hx of depression, recommended outpatient formal w/u with psychiatry dispo: pending auth to inpt rehab vs home with PT tomorrow dvt ppx: full dose AC Full code VTE Prophylaxis: Sub-Q Enoxaparin Resuscitation Status: CPR: Attempt Resuscitation Time spent 35min Ryley Carrizales MD Nov 20, 2016 18:02
--- NOTE | 2016-11-20 19:17 | NUR ---
Fall Risk/Activity Pt ambulation with FWW- RN, OT, PT, CUT OUT PRESS OPERATOR X5 this shift. Increased in strength overall but pt has intermittent LLE weakness. [place] alarm placed on patient for fall risk. Up with SBA only.
[2016-11-21 00:01] VITALS: BP 149/80; PULSE 98; RESP 18; O2SAT 97
--- NOTE | 2016-11-21 00:03 | NUR ---
Neuro/Activity On initial assessment, patient was sitting up in chair. Patient instructed to use call light at all times while transferring to bed and bathroom. Patient had no apparent deficits. Arm and hand strength equal . Patient moved all lower extremities. Alert and oriented. VSS. Call light within reach. Care continues.
[2016-11-21 05:11] VITALS: PULSE 70
[2016-11-21 05:19] VITALS: BP 130/79; PULSE 65; RESP 18; O2SAT 97
[2016-11-21] MEDS: Dextrose 5% 0.45% NaCl 1,000 ML IV SCH ×2 (05:45→15:45)
[2016-11-21 08:00] VITALS: PULSE 90
[2016-11-21 08:15] VITALS: BP 153/94; PULSE 83; RESP 17; O2SAT 95
--- NOTE | 2016-11-21 08:41 | NUR ---
NUTRITION FOLLOW-UP: ASSESS: Pt is an 81yo m admitted for CVA. He was able to have his diet advanced 11/19 to dysphagia mechanical with NT liquids per ST. He is tolerating PO well at 100% of most meals. Last BM was 11/19. Wt is up 3kg PMHX: Afib, CHF, MS LABS: Reviewed. Last labs 11/19, WNL MEDS: Reviewed. GI: BMx1 11/19 SKIN: no major issues CURRENT WTS: 109.2kg, BMI 35.6kg/m2, IBW: 72.7kg, admit wt 106.1kg DIET: Dysphagia Mechanical, PO 100% EST. NEEDS: BMI Kcals: 2120-2335kcal/day (20-22kcal/kg) Pro: 85-110g/day (1.2-1.5g/kg IBW) NUTRITION DIAGNOSIS: 1.) Chew/swallow difficulty related to CVA as evidence by need for NPO status per ST and left facial weakness and slurred speech--IMPROVING 2.) Inadequate oral intake related to decreased ability to consume sufficient energy as evidenced by current NPO status--RESOLVED NUTRITION INTERVENTION: 1.) Continue to advance diet per ST. PO adequate for needs. MONITOR / EVAL: PO, ST, wt, gi, labs, POC, nutrition status. Will continue to monitor per moderate nutrition risk guidelines.
--- NOTE | 2016-11-21 11:49 | NUR ---
Spoke with patient at bedside and gave choice list for Home Health Services, [facility] is contracted with patient's insurance and is able to accommodate speech therapy 3 times a week. Updated RN DOCUMENTATION SPECIALIST and asked her to follow up with patient's daughter Lou regarding new home plan and home health. Addendum: 11/21/16 at 1156 by ALDO HERNANDEZ CM MD followed up after my conversation and patient is not feeling he needs home speech and is asking for outpatient speech therapy. Updated RN DOCUMENTATION SPECIALIST
--- NOTE | 2016-11-21 11:51 | NUR ---
Social Work: Readiness for Discharge D: Pt discussed in am rounds. Pt is medically stable for discharge. Pt has progressed and is no longer candidate for inpatient rehab. Pt is being dishcharged home with home health. [facility] has provided CHOICE LIST and preference is for [facility]. Referral has been made. DECKHAND MAINTENANCE left messages for the patient's daughter, Lou Saenz, notifying her of the anticipated discharge and to coordinate a ride for the patient. DECKHAND MAINTENANCE requested return phone call as soon as possible. A: Pt who is home bound and wishes for HH for ST. P: Pt to discharge home iw [facility] for ST. Family to transport. HERNANDO Sen Addendum: 11/21/16 at 1156 by MARK LÓPEZ Per CUT PRESS OPERATOR and Discharging MD, pt no longer is wishing to have home health and now wants a referral for outpatient Speech Therapy. Referral to [facility] cancelled. Addendum: 11/21/16 at 1303 by MARK LÓPEZ Received t/c back from pt's daughter. She has some concerns about pt being at risk for choking and needing suctioning. Per review and confirmation with bedside and devulcanizer charger, pt has not required suctioning and has been tolerating prescribed diet. DECKHAND MAINTENANCE requested that compounding scaler pt's diet, d/c instructions and review teaching and education regard pt's speech needs once daughter arrives at bedside. RN acknowledges this and will complete this with daughter. Daughter will be here at 4:30pm today. HERNANDO Sen
[2016-11-21] MEDS ORDERED: ASPI-973 PO (11:57)
--- NOTE | 2016-11-21 12:08 | PCM.DC.MED ---
Discharge Summary Date of Service Nov 21, 2016 Dates of Hospitalization Date of Hospital Admission Nov 19, 2016 at 01:50 Date of Discharge: Nov 21, 2016 Providers: Admitting Physician: Ryley Adames MD Primary Care Physician: Other,Physician Attending Physician: Jesu Naylor MD Diagnosis at Time of Discharge Diagnosis at Time of Discharge Acute right anterior darling stroke Chronic atrial fibrillation Hypertension Procedures XRay, CTs & MRIs PROCEDURE: CT ANGIO BRAIN NECK TPA INDICATIONS: STAT READ - CALL ED PROVIDER W/RESULTS TECHNIQUE: Pre-contrast 4.5 mm thick sections acquired from the foramen magnum to the vertex. After the administration of intravenous contrast, 1 mm thick sections acquired from the aortic arch through the [place] of [place]. Post-contrast 4.5 mm thick sections then re-acquired from the foramen magnum to the vertex. 3- dimensional lypszvi-ggethbyvc-vjmbwdvvim (MIP) and/or volume rendering reformats were acquired of the central intracranial vasculature and neck separately. For radiation dose reduction, the following was used: automated exposure control, adjustment of mA and/or kV according to patient size. COMPARISON: [facility], CT, BRAIN ([facility]), 11/18/2016, 22:33. FINDINGS: Image quality: Excellent. BRAIN: CSF spaces: Ventricles are normal in size and shape. Basal cisterns are patent. No extra-axial fluid collections. Brain: Mild to moderate cerebral volume loss and periventricular white matter chronic small vessel ischemic changes are present. There is an old lacunar infarct in the left basal ganglia. No midline shift. No intracranial bleeds or masses. Prince-white matter interface appears intact. Skull and face: Calvarium and facial bones appear intact, without suspicious lesions. Orbits appear normal. Sinuses: An air fluid level is present in the right maxillary sinus. There is a mucous retention cyst or polyp in the right maxillary sinus. There is bilateral ethmoid and sphenoid sinus mucosal thickening. Mastoids are clear. HEAD CT ANGIOGRAPHY: Anterior circulation: Intracranial internal carotid arteries are normal in size and flow. The flow within the paired anterior cerebral arteries is normal and symmetric. The flow within the middle cerebral arteries is normal and symmetric. The anterior communicating artery is seen. No aneurysms are seen. Posterior circulation: Visualized portions of the vertebral arteries demonstrate normal caliber, and join to form a normal appearing basilar artery. Flow within the posterior cerebral arteries is normal and symmetric. No aneurysms are seen. NECK CT ANGIOGRAPHY: Carotid system: The great vessels demonstrate a conventional anatomy as they arise from the aortic arch. Mild calcified plaques in aortic arch and carotid bifurcations. The origins of the common carotid arteries appear patent. The common carotid arteries demonstrate normal caliber and courses. The bifurcation regions are both widely patent. The internal carotid arteries demonstrate normal calibers and courses. Posterior circulation: The origins of the vertebral arteries both appear widely patent. The more superior extracranial portions of both vertebral arteries also demonstrate normal courses and calibers. They join to form a normal appearing basilar artery. Soft tissues: Visualized neck soft tissues demonstrate no suspicious abnormalities. Mild to moderate emphysema. Bones: No suspicious bony lesions. There is moderate to severe degenerative disc disease at C6-C7. Visualized cervical spine appears normally aligned. IMPRESSION: 1. No high-grade stenosis or occlusion of carotid arteries or vertebral arteries. 2. No acute intracranial abnormalities. Old lacunar infarct in the left basal ganglia and chronic microvascular ischemic changes. 3. Bilateral paranasal sinus disease as described. No significant discrepancy with the shift boss radiology preliminary report. Dictated by: Fransisco Mancilla M.D. on 11/19/2016 at 8:18 PROCEDURE: MRI BRAIN WITH AND WITHOUT CONTRAST ([id number]) INDICATIONS: 81 year-old male with CVA. TECHNIQUE: Noncontrast axial T1 spin echo, axial T2 fast spin echo, sagittal and axial FLAIR, coronal T2 fast spin echo, axial gradient echo, axial diffusion and ADC through the brain. After the administration of contrast, axial and coronal T1 spin echo with fat saturation through the brain. COMPARISON: [facility], CT, BRAIN ([facility]), 11/18/2016, 22:33. FINDINGS: Image quality: Excellent. CSF spaces: Basal cisterns are patent. No extra-axial fluid collections. Ventricles are normal in size and shape. Brain: Diffusion-weighted images demonstrate restricted diffusion in the right anterior darling, consistent with acute ischemic insults. No midline shift. No intracranial bleeds or masses. No abnormal intracranial enhancement. There is moderate cerebral volume loss for age. There is moderate periventricular white matter chronic small vessel ischemic change. The brainstem appears normal. No chronic ischemic insults. Normal intravascular flow voids are present. Skull and face: Calvarial marrow is normal in signal. Orbits appear normal. Sinuses: There is mucosal thickening involving frontal, ethmoid, sphenoid, and maxillary sinuses bilaterally. The mastoids appear clear. IMPRESSION: 1. Acute ischemia insults involving the right anterior darling. 2. Cerebral volume loss and chronic microvascular ischemic changes. 3. Bilateral pansinusitis. Dictated by: Fransisco Mancilla M.D. on 11/19/2016 at 13:10 Cardiac Echo Impression Echocardiogram Report Name: DAY HOLGUIN JStudy Date : 11/20/2016 Height: 69 in Hospital Exam Location: [facility] Weight: 235 lb Gender: Male BSA: 2.2 m2 : 1935 Age: 81 yrs BP: 138/83 mmHg Reason For Study: CVA Ordering Physician: HOSPITALIST [facility] Performed By: Ramy Kline Referring Physician: JOSÉ MIGUEL CAMACHO Interpretation Summary The left ventricle is mildly dilated. Left ventricular systolic function is borderline reduced. The ejection fraction is estimated to be 50-55%. With reduced visualization of the subendocardial border, there appears to be hypokinesis along the basal inferoseptal and inferior wall. The right ventricle is mildly dilated. Right ventricular systolic function is borderline reduced. Right ventricular systolic pressure is estimated to be 24 mmHg plus the clinically estimated CVP which cannot be estimated on this exam. The left atrium is severely dilated. Right atrial size is normal. There is mild to moderate tricuspid regurgitation. There is no other significant valvular heart disease. The ascending aorta is mildly enlarged. Brief History Is an 83-year-old male who has a history of HI and atrial fibrillation who presented to the emergency room via EMS with left-sided weakness and slurred speech. He notes that it is better but not completely resolved. He denies any history of previous strokes. Patient had been on Coumadin for his atrial fibrillation but he did not want to take it anymore and stopped about 2 years ago. He denies cough or chest pain. Denies any fevers or chills. His evaluation in the emergency room includes CT of head without contrast which revealed moderate involutional changes. Moderate patchy low density bilaterally in the deep white matter likely due to chronic ischemic small vessel disease. No acute intracranial abnormality noted bilateral frontal ethmoid and sphenoid sinus mucosal thickening. Per ER M.D. preliminary read on CTA head and neck is essentially negative no acute findings. Hospital Course Acute right santerior darling stroke, POA, -MRI showed acute Rt pontine infarc on DWI. TTE showed no shunt, thrombus. -started aspirin 325mg, decreased to 81mg daily -statin was not initiated as pt couldn't tolerate in the past, of note [id number], encouraged further discussion with PCP about PCSK9 inhibitor -daily PT/OT/ s/s eval, -Eliquis restarted -Discharge patient home; recommend out patient speech therapy 3/week and fllow up with primary care provider next week chronic afib, POA, -used to be on coumadin, Eliquis, Xarelto, off for several months due to noncompliance -resumed Eliquis 11/19, upon literature review, given small size of stroke, risks of hemorrhagic conversion seemed low, will continue 5mg bid, Rx was printed( needs preauth or letter by PCP to decreased the cost) chronic, stable hx of CHF, EF normal on TTE, follow up with pcp, euvolemic on exam, addressed with daughter. chronic non-compliance, addressed extensively with patient, family hx of depression, recommended outpatient formal w/u with psychiatry dispo: pending auth to inpt rehab vs home with PT tomorrow dvt ppx: full dose AC Full code Exam Vital Signs (Last) Date Time Temp Pulse Resp B/P Pulse Ox O2 Delivery O2 Flow Rate FiO2 11/21/16 08:15 36.8 83 17 153/94 95 Room Air Exam Neuro; CN 2-12 intact, minimally difficulty with speech Motor without focal defects now Skin; no rash, dry ENMT; adequate hydration CV; no Murmur Resp; clear anteriorly GI; soft non acute benign Test 11/18/16 22:55 11/19/16 00:00 11/19/16 00:30 11/19/16 05:25 White Blood Count 6.3th/mm3 (3.8-10.1) Red Blood Count 5.10mil/mm3 (4.40-5.80) Hemoglobin 15.6g/dL (13.8-17.2) Hematocrit 44.3% (41.0-50.0) Mean Corpuscular Volume 86.9fL (81-100) Mean Corpuscular Hemoglobin 30.6pg (27.0-35.0) Mean Corpuscular Hemoglobin Concent 35.2% (32.0-37.0) Red Cell Distribution Width 14.0% (12.3-15.4) Platelet Count 202bil/L (150-400) Neutrophils (%) (Auto) 50.4% (40-74) Lymphocytes (%) (Auto) 26.5% (14-46) Monocytes (%) (Auto) 12.2% (4-12) Eosinophils (%) (Auto) 10.0% (0-5) Basophils (%) (Auto) 0.6% (0-3) Prothrombin Time 10.5sec (8.1-12.5) Prothromb Time International Ratio 0.98ratio Activated Partial Thromboplast Time 26.7sec (22.8-33.0) Sodium Level 138mEq/L (134-144) Potassium Level 4.5mEq/L (3.5-5.2) Chloride Level 102mEq/L (97-108) Carbon Dioxide Level 22mmol/L (18-29) Blood Urea Nitrogen 26mg/dL (8-27) Creatinine 1.10mg/dL (0.76-1.27) Estimat Glomerular Filtration Rate 68mL/min (>59) Glucose Level 114mg/dL (60-99) Calcium Level 9.1mg/dL (8.5-10.1) Magnesium Level 2.0mg/dL (1.6-2.6) Total Bilirubin 0.3mg/dL (0.0-1.2) Aspartate Amino Transf (AST/SGOT) 28U/L (0-50) Alanine Aminotransferase (ALT/SGPT) 20U/L (0-44) Alkaline Phosphatase 86U/L (25-160) Troponin T 0.010ug/L (0.0-0.011) Total Protein 6.7g/dL (6.4-8.4) Albumin 4.0g/dL (3.4-5.0) Hold Martin Top Tube Received (Received) Hemoglobin A1c 5.8% (4.8-5.6) Urine Color Yellow (YELLOW) Urine Appearance Clear (CLEAR,HAZY) Urine pH 7.0 (5.0-8.0) Urine Specific [place] 1.015 (1.003-1.035) Urine Protein Negativemg/dL (NEG,TRACE) Urine Glucose (UA) Negativemg/dL (NEGATIVE) Urine Ketones Negativemg/dL (NEGATIVE) Urine Occult Blood Negative (NEGATIVE) Urine Nitrite Negative (NEGATIVE) Urine Bilirubin Negative (NEGATIVE) Urine Urobilinogen 1.0mg/dL (NORMAL) Urine Leukocyte Esterase Negative (NEGATIVE) Urine RBC 0-2/hpf (0-2) Urine WBC 0-5/hpf (0-5) Urine Epithelial Cells Occasional/hpf (NONE-MOD) Urine Crystals None seen (NONE SEEN) Urine Bacteria None/hpf (NONE-FEW) Urine Hyaline Casts None/lpf (NONE) Urine Granular Casts None seen (NONE SEEN) Urine Waxy Casts None seen (NONE SEEN) Urine Red Blood Cell Casts None seen (NONE SEEN) Urine White Blood Cell Casts None seen (NONE SEEN) Urine Mucus Present (None Seen) Urine Trichomonas None seen (NONE SEEN) Urine Yeast None (NONE SEEN) Urinalysis Comment None Urine Culture Reflexed Not indicated Hold Urine Received (Received) Triglycerides Level 164mg/dL (0-149) Cholesterol Level 197mg/dL (100-199) LDL Cholesterol, Calculated 132.200mg/dL (0-99) VLDL Cholesterol 32.800mg/dL HDL Cholesterol 32mg/dL (>39) Cholesterol/HDL Ratio 6.16 (0.0-4.4) Discharge Medications Discharge Medications ([natto kinase]) 1 TABLET PO DAILY (Reported) Apixaban (Eliquis) 5 Mg Tablet 5 MG PO BID Prescribed by: RYLEY ADAMES MD Apixaban (Eliquis) 5 Mg Tablet 5 MG PO BID Prescribed by: RYLEY ADAMES MD Aspirin (Aspirin) 81 Mg Tablet 81 MG PO DAILY Prescribed by: Jesu NAYLOR MD Multivitamin (Once Daily) 1 Each Tablet 1 EACH PO DAILY (Reported) As needed Meclizine (Bonine) 25 Mg Tab.chew 25 MG PO TID PRN PRN For Dizziness (Reported) Miscellaneous Medications ([calcium]) (Reported) Additional med instructions Please continue to take [id number] and Eliquis 5mg twice a day Followup Plan Discharge Diet: Heart Healthy Discharge Activity: Home Health Phyical Therapy Patient Instructions You were hospitalized with left sided weakness and slurred speech, you were found to have acute stroke in your brainstem. In order to maximize your strength , you are discharged to inpatient rehab. Please monitor your stools given newly started blood thinner, if you notice bloody or black stools, please stop taking Eliquis, seek for medical help Please follow up with your doctor in 2weeks Instruction for PCP, future provider> Please consider PCSK9 inhibitor for HLD, LDL level was 132 on this admission, pt was not given statin as pt claimed that he developed intolerance in the past Please consider start regimen for CHF, no BB or ACEI was started on this admission as no other information available regarding his cardiac disease. pt is known to be noncompliant. echocardiogram was not obtained, please consider to repeat if necessary. Regardless of the result, pt was restarted on Eliquis, Rx for 1month and 2weeks given to the patient Follow-up Provider: [facility] Follow-up with PCP in: 2 weeks Jesu Naylor MD Nov 21, 2016 12:08
[2016-11-21 13:31] VITALS: BP 147/85; PULSE 78; RESP 16; O2SAT 96
--- NOTE | 2016-11-21 17:01 | NUR ---
Discharge Pt to discharge to home with his daughter; A&Ox3, amb ind with steady gait, 1 IV access discontinued, VSS. Written and verbal instructions given to patient and daughter with instructions to which they state understanding. Pt given hard copy of Rx for Apixaban and pharmacy called to verify they were open and medication available for roller picker before pt discharged. Pt encouraged to take PO Apixaban daily along with continuing to take PO Meclizine, Multivitamin, and Metoprolol daily and to discontinue taking PO furosemided to which pt and daughter state verbal understanding. Pt encouraged to follow a heart healthy diet and to f/u with op speech therapy, monitor stools daily due to blood thinner and to f/u with residency clinic in [address] Menard on 11/26/16 at 7:45am for check in. Pt and daughter state understanding of discharge instructions. Pt belongings with pt and daughter at time of discharge; pt wheeled off unit in wheelchair with aide.
--- NOTE | 2016-11-23 11:10 | NUR ---
Social Work- Late Note Data: SW received telephone call on 11/23 from pt's daughter Lou [phone] regarding pt's discharge plan. Pt's family thought that he was being discharged home with HH services through [facility] . Per chart review, pt declined HH services and wanted outpt services. Per pt's daughter during this phone call, pt thought that oupt services were the same as HH. Pt was stating that he didn't want to go to inpt rehab any longer. SW explained the difference between HH and outpt services. Lou still agreeable to [facility] being used if able. SW placed telephone call to Mirtha, [facility] liaison, regarding this and left message requesting return call. BRAYAN will continue to follow and will follow up with pt HERNANDO Stephens Addendum: 11/23/16 at 1157 by OLMAN KELLEY SS T/C from Mirtha at [facility] who is going to look into the hospital orders and potentially obtain new HH orders from pt's PCP. Mirtha will contact Lou directly and HERNANDO will step back from this case. Contact information of Lou provided to Mirtha. HERNANDO Stephens
--- NOTE | 2016-11-25 16:17 | NUR ---
LATE NOTE:11/24/16 Spoke with patient's daughter and heard her concerns regarding no home health orders at discharge. Gave Lou patient's daughter number for patient advocate. Spoke with patient advocate and made sure there was an expedited call back to the daughter regarding orders and getting [facility] out to the patient's house as soon as possible. Updated DEPUTY SHERIFF BAILIFF and DEPUTY SHERIFF BAILIFF Steam Turbine Operator 11/25/16 Face to Face and home health orders picked up by Mirtha Quevedo liaison at [facility]
== END 2016-11-21 17:03 | disposition home or self-care (01) | DRG 66 ==
LOC: SED 22:01 → EDBD 22:01 → OSC 11-19 01:50 → OBSVTOIN 11-19 01:50
PROVIDERS: ADMIT Internal Medicine; ATTEND Hospitalist
DX: I63.8 Other cerebral infarction (principal); R29.704 NIHSS score 4; I25.2 Old myocardial infarction; R40.2142 Coma scale, eyes open, spontaneous, at arrival to emergency department; R40.2362 Coma scale, best motor response, obeys commands, at arrival to emergency department; R40.2252 Coma scale, best verbal response, oriented, at arrival to emergency department; R40.2412 Glasgow coma scale score 13-15, at arrival to emergency department; I48.2 Chronic atrial fibrillation; Z91.19 Patient's noncompliance with other medical treatment and regimen